=== PATIENT | male | born 1955 ===

== ENCOUNTER 2025-09-08 08:00 | Day surgery (SDC) | payer OTHER ==
[~2025-09-08 08:00] MED LIST: ROSUVASTATIN CA10 MG PO; SUPER TWIN EP1250 MG PO; ZESTRIL5 MG PO
[2025-09-08] MEDS ORDERED: CEFTRIAXONE SODIUM 2,000 MG VIAL ONE (08:55)
[2025-09-08] MEDS ORDERED: METRONIDAZOLE/SODIUM CHLORIDE 500 MG/100 ML PIGGYBACK IV ONE (08:56)
[2025-09-08] MEDS ORDERED: HEMOSTATIC MATRIX 1 KIT KIT TOP ONE (12:22)
[2025-09-08] MEDS ORDERED: DIBUCAINE 30 GM TUBE ONE (12:22)
[2025-09-08] MEDS ORDERED: POVIDONE-IODINE 118 ML BOTT TOP ONE (12:22)
[2025-09-08] MEDS ORDERED: ONDANSETRON HCL 2 MG/ML VIAL ONE (19:21)
== END 2025-09-08 21:20 | disposition home or self-care (01) ==
LOC: CIR.AMB 08:00
PROVIDERS: ATTEND Colon & Rectal Surgery
DX: K64.2 Third degree hemorrhoids (principal); K64.4 Residual hemorrhoidal skin tags